=== PATIENT | female | born 1965 | race Caucasian/White ===

== ENCOUNTER 2020-03-02 18:24 | Emergency (ER) | payer SELFPAY ==
[2020-03-02] VITALS (9 sets, daily range): BP systolic 101–135; BP diastolic 52–91; PULSE 57–85; RESP 15–18; TEMP 36.5–37; O2SAT 93–99; BMI 25.0; BMI 25.1
--- NOTE | 2020-03-02 18:38 | PC.NURSE ---
Pt in restroom for several mins before ever coming into ER.
--- NOTE | 2020-03-02 18:49 | XR_ITS ---
PROCEDURE: XR KUB CLINICAL INDICATION: PAIN/CONSTIPATION COMPARISON: No exams were available for comparison FINDINGS: There is a mild amount of retained colonic feces. No intestinal obstruction or free air. Inter pedicular screws are present at L5-S1 and there are surgical clips in the upper quadrant. IMPRESSION: Mild amount of retained colonic feces Dictated by: Ad Martinez MD 03/02/2020 22:04 Ad Martinez MD in [place] 03/02/2020 22:04
--- NOTE | 2020-03-02 19:11 | HMH.EDUTC ---
[facility] Disposition Clinical Impression: Abdominal pain Qualifiers: Abdominal location: unspecified location Qualified Code(s): R10.9 - Unspecified abdominal pain Disposition: Still a Patient Condition on Discharge: Fair Referrals: PCP,Radha [Primary Care Provider] - Time of Disposition: 19:14 Medical Decision Making - Medical Records Medical records reviewed: No: I reviewed the patient's medical records. - Juan Carlos Inquiry Pt receiving controlled substance: No Vital Signs: 03/02/20 18:42 03/02/20 18:50 Temperature 97.7 F 97.7 F Temperature Source Oral Oral Pulse Rate [Right Radial] 57 L 57 L Respiratory Rate 17 17 Blood Pressure [Right Arm] 135/91 H 135/91 H Blood Pressure Mean [Right Arm] 105 105 Blood Pressure Source [Right Arm] Automatic Cuff Blood Pressure Position [Right Arm] Sitting 02 Sat by Pulse Oximetry 99 99 Oxygen Delivery Method Room Air Room Air Orders (Tests/Meds): ORDERS Category Date Time Status KUB (single view) [XR KUB] Stat Exams 03/02/20 18:49 Taken Medical Decision Narrative: She is in severe discomfort with her abdominal pain. I sent her to the er for further workup to r/o a bowel blockage. [facility] HPI - General Stated complaint: no BM for several days Time Seen by Provider: 03/02/20 18:45 Mode of Arrival: Ambulatory Source of Information: Patient Limitations: No Limitations Description of Symptoms (Recalled from Triage Doc. by RN): PATIENT C/O ABDOMINAL PAIN, NAUSEA, AND VOMITING. REPORTS SHE HAS HAD NO BM X 4 DAYS. SHE TOOK AN ENEMA APPROX 1 HOUR [employer] WITH NO RESULTS. HEENT Symptoms (Recalled from RN notes): No Resp Symptoms (Recalled from RN notes): No Skin Symptoms (Recalled from RN notes): No MS Symptoms (Recalled from RN notes): No Functional Status (Recalled from RN notes): WNL - History of Present Illness Provider Complaint: She is complaining of abdominal pain and cramping. The pain is so bad that she cannot stand up straight or lie down flat on her back. She states that it has been 4 days since her last bm, but she has went that long plenty of times before and she did not have these symptoms. She has tried a fleet's enema at home today before she came in here. She states that since the enema she has cramped worse. She denies any fever or chills. - Related Data Allergies Allergy/AdvReac Type Severity Reaction Status Date / Time povidone-iodine Allergy Verified 03/02/20 18:48 [From Betadine] soap [From Betadine] Allergy Verified 03/02/20 18:48 - Worker's Comp Is this a Worker's Comp case?: No [facility] History - Hepatitis A Screen Drug use history?: No High risk sexual behaviors?: No History of sexually transmitted infection?: No Currently employed?: No Childcare worker?: No Do you have indoor plumbing?: Yes Do you have electricity?: Yes Attestation statement:: This patient has been screened for Hepatitis A risk factors. I have reviewed the patient's past medical history: Yes - Social History Alcohol Intake: never Occupational Status: other ROS Obtained: Yes All systems reviewed & no additional complaints - Constitutional Constitutional: Denies chills, Denies fever(s), Reports poor appetite, Reports malaise - Eyes Eyes: Denies eye discharge - Respiratory Respiratory: No chest congestion, No cough, No stridor, No wheezing - Gastrointestinal Gastrointestingal: Reports: as per HPI - Genitourinary Female Genitourinary: Denies dysuria - Musculoskeletal Musculoskeletal: Reports back pain - Integumentary/Breasts Skin/Breast: Denies redness, Denies rash, Denies wounds - Neurologic Neurologic: Denies tingling/numbness/burning sensations Physical Exam - General General appearance: alert, in no apparent distress - Head Head exam: atraumatic, normocephalic, normal inspection - Eye Eye exam: Present: normal appearance, PERRL, EOMI - ENT ENT exam: Present: normal exam, normal oropharynx, mucous membranes moist, TM's
--- NOTE | 2020-03-02 19:17 | PC.NURSE ---
PATIENT SENT TO ER PER BRENTON ESPAÑA APRN FOR FURTHER EVALUATION OF ABDOMINAL PAIN
--- NOTE | 2020-03-02 19:24 | HMH.EDGENADL ---
ED Disposition Clinical Impression: Left renal stone UTI (urinary tract infection) Qualifiers: Urinary tract infection type: acute cystitis Hematuria presence: with hematuria Qualified Code(s): N30.01 - Acute cystitis with hematuria Constipation Qualifiers: Constipation type: unspecified constipation type Qualified Code(s): K59.00 - Constipation, unspecified Disposition: Home, Self-Care Condition on Discharge: Fair Instructions: DI for Kidney Stones, DI for Urinary Tract Infection (UTI), DI for Constipation Additional Instructions: You have been evaluated for lower abdominal pain, diagnosed with a kidney stone and urinary tract infection. Please take cefdinir as prescribed. Take Tylenol and ibuprofen for pain. Take magnesium citrate and use enema. Follow-up with your primary care doctor in 1 to 2 days for symptom recheck. Return to the emergency department if you have any new or worsening symptoms. Prescriptions: Magnesium Citrate [Magnesium Citrate 10oz Bottle] 10 oz PO ONCE 1 Days #10 solution Transmission Status: Pending to [facility]/pharmacy #[id number] Cefdinir [Omnicef 300mg Capsule] 300 mg PO BID 7 Days #14 cap Transmission Status: Pending to [facility]/pharmacy #[id number] Ondansetron [Zofran 4mg ODT] 4 mg PO Q6 PRN #12 tab.rapdis PRN Reason: Nausea Transmission Status: Pending to [facility]/pharmacy #[id number] Referrals: PCP,No [Primary Care Provider] - Time of Disposition: 22:52 - Critical Care Critical Care Time: No Attestation: On , the high probability of a clinically significant, sudden or life threatening deterioration of the following system(s) required my full and direct attention, intervention and personal management. The time I documented below is in addition to time spent performing reported procedures but includes the following listed in this critical care notation. Medical Decision Making - Medical Records Medical records reviewed: Yes: I reviewed the patient's medical records. - Juan Carlos Inquiry Pt receiving controlled substance: No Vital Signs: 03/02/20 18:42 03/02/20 18:50 03/02/20 19:25 Temperature 97.7 F 97.7 F 98 F Temperature Source Oral Oral Rectal Pulse Rate [Right Radial] 57 L 57 L 77 Respiratory Rate 17 17 15 Blood Pressure [Right Arm] 135/91 H 135/91 H 121/64 Blood Pressure Mean [Right Arm] 105 105 83 Blood Pressure Source [Right Arm] Automatic Cuff Automatic Cuff Blood Pressure Position [Right Arm] Sitting Supine 02 Sat by Pulse Oximetry 99 99 93 L Oxygen Delivery Method Room Air Room Air Room Air 03/02/20 19:48 03/02/20 20:00 03/02/20 21:00 Temperature Temperature Source Pulse Rate [Right Radial] 80 69 74 Respiratory Rate 15 18 Blood Pressure [Right Arm] 126/76 117/68 117/68 Blood Pressure Mean [Right Arm] 92 84 84 Blood Pressure Source [Right Arm] Automatic Cuff Blood Pressure Position [Right Arm] Supine 02 Sat by Pulse Oximetry 97 97 96 Oxygen Delivery Method Room Air Room Air 03/02/20 21:30 03/02/20 22:00 Temperature Temperature Source Pulse Rate [Right Radial] 66 66 Respiratory Rate 18 18 Blood Pressure [Right Arm] 126/57 L 127/52 L Blood Pressure Mean [Right Arm] 80 77 Blood Pressure Source [Right Arm] Automatic Cuff Automatic Cuff Blood Pressure Position [Right Arm] Supine Supine 02 Sat by Pulse Oximetry 96 98 Oxygen Delivery Method Room Air Room Air - Lab Data Lab Results 03/02/20 18:45: Lactate 1.1 03/02/20 19:30: WBC 9.7, RBC 5.08, Hgb 16.2, Hct 45.6, MCV 89.8, MCH 31.8 H, MCHC 35.5 H, RDW 13.8, Plt Count 192, MPV 6.9 L, Neut % (Auto) 87.8 H, Lymph % (Auto) 8.9 L, [place] % (Auto) 1.8, Eos % (Auto) 1.4, Baso % (Auto) 0.2, Neut # (Auto) 8.5 H, Lymph # (Auto) 0.9, [place] # (Auto) 0.2, Eos # (Auto) 0.1, Baso # (Auto) 0.0, Total Counted 100, Neutrophils % (Manual) 80 H, Band Neutrophils % 14.0 H, Lymphocytes % (Manual) 6 L, Platelet Estimate Normal, RBC Morphology Normal 03/02/20 19:30: Sodium 142, Potassium 3.7, Chloride 101, Carbon Dioxide 31 H, Anion
--- NOTE | 2020-03-02 19:27 | XR_ITS ---
PROCEDURE: XR CHEST AP CLINICAL HISTORY: cough Smoker COMPARISON: CT CT ABDOMEN PELVIS W CON from 03/02/2020 FINDINGS: The cardiomediastinal silhouette and pulmonary vascularity are within normal limits. Changes of COPD. There is a vague 2.7 cm nodular opacity overlying the left lower lobe which could represent an area of infiltrate or pulmonary nodule. Consider chest CT for further evaluation. There is mild lower thoracic curvature convex right IMPRESSION: Vague opacity overlies the left lower lobe at 2.7 cm and could be due to an area of infiltrate or nodule. Consider chest CT for further evaluation. Dictated by: Ad Martinez MD 03/02/2020 22:00 Ad Martinez MD in [facility] 03/02/2020 22:00
--- NOTE | 2020-03-02 19:27 | CT_ITS ---
PROCEDURE: CT ABDOMEN PELVIS W CON CLINICAL INDICATION: abd pain, constipation General abdominal pain with vomiting, constipation nausea and vomiting COMPARISON: No exams were available for comparison TECHNIQUE: IV Contrast: 75ML OPTIRAY 350 Oral Contrast None Axial images obtained with sagittal and coronal reformats. All CT scans at the facility use one or more dose reduction, viz: automated exposure control, ma/kV adjustment per patient size (including targeted exams where dose is matched to indication, i.e. head), or iterative reconstruction technique. FINDINGS: LOWER THORAX: No acute finding ABDOMEN & PELVIS: Post cholecystectomy changes. The liver, spleen, adrenal glands, pancreas, has an unremarkable appearance. There is mild prominence of the left renal pelvis. Nonobstructing 4 mm stone is present in the lower pole of left kidney. There is a moderate amount of retained colonic feces. Reported prior appendectomy. No intestinal obstruction or free air. Hysterectomy. No pelvic mass or abnormal fluid collection. There is a mild amount of fluid in the left colon.. No acute bony findings. There has been prior posterior fusion at L5-S1 There is mild urinary bladder wall thickening which may be seen with incomplete distension, chronic outflow obstruction, or cystitis IMPRESSION: 1. Left nephrolithiasis. 2. Prominent left renal pelvis suggesting UPJ stenosis 3. There is mild urinary bladder wall thickening which may be seen with incomplete distension, chronic outflow obstruction, or cystitis. Dictated by: Ad Martinez MD 03/03/2020 07:12 Ad Martinez MD in [facility] 03/03/2020 07:12
--- NOTE | 2020-03-02 19:33 | PC.NURSE ---
patient placed in gown, and rectal temp checked as oral temp showed 92.8. Rectal temp 98.0. Pt given warm blankets for comfort.
--- NOTE | 2020-03-02 19:49 | PC.NURSE ---
patient at bedside
[2020-03-02 19:50] LABS: Basophils % 0.2 % (0.1-2.0); Eosinophils # 0.1 K/mm3 (0.0-0.4); Eosinophils % 1.4 % (0.1-12.0); Hematocrit 45.6 % (37.0-47.0); Hemoglobin 16.2 g/dL (12.2-16.2); Lymphocytes # 0.9 K/mm3 (0.7-4.5); Lymphocytes % 8.9 % (10-50); Mean Corpuscular HGB Conc 35.5 g/dL (31.8-35.4); Mean Corpuscular Hemoglobin 31.8 pg (27.0-31.2); Mean Corpuscular Volume 89.8 fl (81-99); Mean Platelet Volume 6.9 fl (7.4-10.4); Monocytes # 0.2 K/mm3 (0.1-1.0); Monocytes % 1.8 % (1.7-9.3); Neutrophils # 8.5 K/mm3 (1.8-7.8); Neutrophils % 87.8 % (37.0-80.0); Platelet Count 192 K/mm3 (142-424); Red Blood Count 5.08 M/mm3 (4.20-5.40); Red Cell Distribution Width 13.8 % (11.5-17.5); White Blood Count 9.7 K/mm3 (4.8-10.8)
[2020-03-02 19:57] LABS: MANUAL DIFFERENTIAL MANUAL DIFFERENTIAL (MANUAL DIFF)
[2020-03-02 19:58] LABS: Alanine Aminotransferase 17 U/L (12-78); Albumin Level 5.1 g/dl (3.5-5.0); Albumin/Globulin Ratio 1.3 (1.1-1.8); Alkaline Phosphatase 106 U/L (38-126); Anion Gap 13.7 mEq/L (5-15); Aspartate Amino Transferase 38 U/L (14-36); Bilirubin,Total 0.6 mg/dl (0.2-1.3); Blood Urea Nitrogen 23 mg/dl (7-17); Calcium 10.6 mg/dl (8.4-10.2); Carbon Dioxide 31 mmol/L (22.0-30.0); Chloride 101 mmol/L (98-107); Creatinine Clearance Estimated 94 mL/min (50-200); Estimated Glomerular Filt Rate 75 ml/min (>60); GFR (African American) 91 ML/MIN (>60); Globulin 3.9 g/dL (1.3-3.2); Glucose 128 mg/dl (74-100); Lipase 55 U/L (23-300); Potassium 3.7 mmoL/L (3.5-5.1); Sodium 142 mmol/L (136-145)
--- NOTE | 2020-03-02 19:58 | PC.NURSE ---
patient states she cannot urinate yet. IVF infusing at this time.
[2020-03-02 20:00] LABS: Lactic Acid 1.1 mmol/L (0.7-2.1)
--- NOTE | 2020-03-02 20:03 | PC.NURSE ---
gave patient another blanket at this time. informed her that we were still waiting her lab results before she could have her CT scan completed. at this time patient reports she still has nausea and abdominal cramping, informed Dr Bonilla.
--- NOTE | 2020-03-02 20:09 | PC.NURSE ---
notified radiology patients labs were back and she was ready to go for her ct scan
[2020-03-02 20:11] LABS: Lymphocytes % 6 % (10-50); Neutrophils % 80 % (42-76); Platelet Estimate Normal; RBC Morphology Normal; Total Cells Counted 100
--- NOTE | 2020-03-02 20:27 | PC.NURSE ---
patient to ct
--- NOTE | 2020-03-02 20:53 | PC.NURSE ---
patient back from ct
[2020-03-02 21:02] LABS: Microscopic, Urine URINE MICROSCOPIC (MICROSCOPIC)
[2020-03-02 21:05] LABS: Appearance,Urine CLEAR (Clear); Bilirubin,Urine Negative (Negative); Blood, Urine 3+ (Negative); Color,Urine YELLOW (Yellow); Glucose,Urine (UA) Negative (Negative); Ketones,Urine Negative (Negative); Leukocyte Esterase,Urine TRACE (Negative); Nitrate,Urine POSITIVE (Negative); Protein,Urine TRACE (Negative); Specific Gravity, Urine >= 1.030 (1.005-1.030); Urobilinogen,Urine 0.2 EU/dl (0.2)
[2020-03-02 21:19] LABS: Bacteria,Urine 3+ /lpf; Calcium Oxalate Crystals,Urine Trace /lpf; RBC,Urine Occasional #/hpf (0-3)
--- NOTE | 2020-03-02 21:41 | PC.NURSE ---
PATIENT UP TO BATHROOM AT THIS TIME
--- NOTE | 2020-03-02 22:36 | PC.NURSE ---
PT RESTING AT THIS TIME. REQUESTED TO PUT CLOTHES BACK ON. INFORMED PATIENT SHE COULD PUT HER BOTTOMS BACK ON BUT TO WAIT ON HER SHIRT DUE TO HER IV.
== END 2020-03-02 23:36 | disposition home or self-care (01) ==
PROVIDERS: Emergency Provider Emergency Medicine
DX: N20.0 Calculus of kidney (principal); N30.01 Acute cystitis with hematuria; K59.00 Constipation, unspecified; J44.9 Chronic obstructive pulmonary disease, unspecified
CPT/HCPCS: 71045; 74018; 74177; 80053; 81001; 83605; 83690; 85007; 85025; 87086; 87088; 87186; 96365; 96366; 96367; 96375; 96376; 99284; J2405; Q9967